=== PATIENT | male | born 1970 | race Caucasian/White ===

== ENCOUNTER 2016-11-07 16:27 | Emergency (ER) | payer OTHER | END 2016-11-07 18:44 | disposition home or self-care (01) | DX: S50.02XA Contusion of left elbow, initial encounter (principal); W22.09XA Striking against other stationary object, initial encounter; Y93.89 Activity, other specified; Z87.891 Personal history of nicotine dependence ==

== ENCOUNTER 2018-01-30 11:42 | Emergency (ER) | payer OTHER ==
--- NOTE | 2018-01-30 13:04 | ED Physician Documentation ---
PD HPI BACK PAIN - Stated complaint Stated Complaint: BACK PX - Chief complaint Chief Complaint: Back Pain - History obtained from History obtained from: Patient - History of Present Illness Timing - onset: How many days ago (4) Timing - duration: Days (4) Timing - details: Abrupt onset (awoke with back pain and stiffness, and has had persistent pain and spasms.), Still present Location: Lower, Right Quality: Pain (radiates down right back of thigh but not down whole leg.), Spasm Associated symptoms: No: Fever, Weakness, Numbness, Incontinent of urine Improves with: Rest. No: Meds Worsened by: Movement, Twisting Contributing factors: No: Lifting, Twisting, Trauma Similar symptoms before: Has not had sx before Recently seen: Not recently seen Review of Systems Constitutional: denies: Fever, Myalgias Nose: denies: Rhinorrhea / runny nose, Congestion Throat: denies: Sore throat Cardiac: denies: Chest pain / pressure, Palpitations Respiratory: denies: Dyspnea, Cough GI: denies: Abdominal Pain, Vomiting, Diarrhea : denies: Dysuria, Incontinent, Hematuria Skin: denies: Rash, Lesions Neurologic: denies: Focal weakness, Numbness PD PAST MEDICAL HISTORY - Past Medical History Past Medical History: Yes Cardiovascular: High cholesterol Respiratory: Sleep apnea Endocrine/Autoimmune: Type 2 diabetes Psych: Depression - Past Surgical History Past Surgical History: Yes General: Colonoscopy - Present Medications Home Medications: Ambulatory Orders Medication Instructions Recorded Confirmed Sertraline HCl [Zoloft] 100 mg PO DAILY 11/07/16 11/07/16 Dexamethasone [Decadron] 4 mg PO DAILY #5 tablet 01/30/18 HYDROcod/ACETAM 5/325 [[place] 5/325] 1 tab PO Q6H PRN #15 tablet 01/30/18 Methocarbamol [Robaxin] 500 mg PO Q6H PRN #25 tablet 01/30/18 Naproxen [Naprosyn] 500 mg PO BID #20 tablet 01/30/18 - Allergies Allergies/Adverse Reactions: Allergies Allergy/AdvReac Type Severity Reaction Status Date / Time No Known Drug Allergies Allergy Verified 02/16/15 23:07 - Social History Does the pt smoke?: Yes Smoking Status: Current every day smoker Does the pt drink ETOH?: Yes Does the pt have substance abuse?: Yes - Immunizations Immunizations are current?: Yes - POLST Patient has POLST: No PD ED PE NORMAL - Vitals Vital signs reviewed: Yes - General General: Alert and oriented X 3, Well developed/nourished, Other (appears in pain and guarding motion of low back. ) - Cardiac Cardiac: RRR, No murmur - Respiratory Respiratory: Clear bilaterally - Abdomen Abdomen: Soft, Non tender, Non distended - Male Male : Deferred - Rectal Rectal: Deferred - Back Back: No CVA TTP, No spinal TTP (tender right lateral lumbar/SI area without rash nor sores. ) - Derm Derm: Normal color, Warm and dry, No rash - Extremities Extremities: No deformity, No tenderness to palpate, Normal ROM s pain - Neuro Neuro: Alert and oriented X 3, No motor deficit, No sensory deficit, Normal speech, Other (normal reflexes at knees. ) Results - Vitals Vitals: Oxygen O2 Source Room air PD MEDICAL DECISION MAKING - ED course Complexity details: re-evaluated patient, considered differential (seems muscular and spasms without red flags. ), d/w patient - Sepsis Event Vital Signs: Oxygen O2 Source Room air Departure - Departure Disposition: Home, Self Care Clinical Impression: Back muscle spasm Lower back pain Qualifiers: Chronicity: acute Back pain laterality: right Sciatica presence: with sciatica Sciatica laterality: sciatica of right side Qualified Code(s): M54.41 - Lumbago with sciatica, right side Condition: Stable Record reviewed to determine appropriate education?: Yes Instructions: ED Spasm Back No Trauma Follow-Up: XAVI BUI [Primary Care Provider] - Prescriptions: Dexamethasone [Decadron] 4 mg PO DAILY #5 tablet HYDROcod/ACETAM 5/325 [[place] 5/325] 1 tab PO Q6H PRN #15 tablet PRN Reason: Pain Methocarbamol [Robaxin] 500 mg PO Q6H PRN #25 tablet PRN Reason: Spasms Naproxen [Naprosyn] 500 mg PO BID #20 tablet Comments: Gentle range of motion and heat for the area to reduce spasming. Physical treatments such as physical therapy, massage and chiropractic are good. Using anti-inflammatories such as naproxen or ibuprofen 2-3 times daily. Decadron is also an anti-inflammatory and use it daily for 5 more days. Robaxin muscle relaxant for spasms. Add Tylenol or hydrocodone if needed for pains. Recheck if not improved over the next few days to week. Return if other symptoms develop. Forms: Activity restrictions Discharge Date/Time: 01/30/18 14:29
[2018-01-30] MEDS ORDERED: IBUPROFEN 600 MG TABLET PO STA (13:17)
[2018-01-30] MEDS ORDERED: MORPHINE 10 MG/ML VIAL IM STA (13:17)
[2018-01-30] MEDS ORDERED: diazePAM 5 MG TABLET PO STA (13:17)
[2018-01-30] MEDS ORDERED: TRIAMCINOLONE 40 MG/ML VIAL IM STA (13:17)
[2018-01-30 14:22] VITALS: BP 132/77
== END 2018-01-30 14:29 | disposition home or self-care (01) ==
LOC: ED 11:42
DX: M62.830 Muscle spasm of back (principal); M54.41 Lumbago with sciatica, right side; E11.9 Type 2 diabetes mellitus without complications; E78.00 Pure hypercholesterolemia, unspecified; F17.200 Nicotine dependence, unspecified, uncomplicated
CPT/HCPCS: 96372; 99283; A9270

== ENCOUNTER 2021-03-30 07:00 | Outpatient (CLI) | payer OTHER ==
--- NOTE | 2021-03-30 16:13 | XRAY Report ---
PROCEDURE: Chest 2 View X-Ray INDICATIONS: WHEEZING TECHNIQUE: 2 view(s) of the chest. COMPARISON: 10/04/2014 chest x-ray. FINDINGS: Surgical changes and devices: None. Lungs and pleura: No pleural effusions or pneumothorax. Mild reticulonodular pulmonary opacity. Mediastinum: Mediastinal contours are normal. Heart size is normal. Bones and chest wall: No suspicious bony abnormalities. Soft tissues appear unremarkable. IMPRESSION: Mild atypical pneumonia. Reviewed by: Jennifer Reyes MD on 03/30/2021 4:12 PM PDT Approved by: Jennifer Reyes MD on 03/30/2021 4:12 PM PDT Station ID: [id number]
[2021-03-30 17:59] LABS: BASOPHILS # (AUTO) 0.1 10^3/uL (0.0-0.1); BASOPHILS % (AUTO) 0.7 %; EOSINOPHILS # (AUTO) 0.2 10^3/uL (0.0-0.7); EOSINOPHILS % (AUTO) 1.5 %; HGB - HEMOGLOBIN 16.4 g/dL (14.0-18.0); LYMPHOCYTES # (AUTO) 2.9 10^3/uL (1.5-3.5); LYMPHOCYTES % (AUTO) 19.7 %; MEAN CORPUSCULAR HEMOGLOBIN 31.4 pg (27.0-31.0); MEAN CORPUSCULAR HGB CONC 34.2 g/dL (32.0-36.0); MEAN CORPUSCULAR VOLUME 91.8 fL (80.0-94.0); MEAN PLATELET VOLUME 10.9 fL (7.4-11.4); MONOCYTES # (AUTO) 1.5 10^3/uL (0.0-1.0); MONOCYTES % (AUTO) 9.9 %; NEUTROPHILS # (AUTO) 10.2 10^3/uL (1.5-6.6); NEUTROPHILS % (AUTO) 67.9 %; PLT - PLATELET COUNT 276 10^3/uL (130-450); RED BLOOD COUNT 5.23 10^6/uL (4.70-6.10); RED CELL DISTRIBUTION WIDTH 12.4 % (12.0-15.0)
[2021-03-30 18:39] LABS: ALBUMIN/GLOBULIN RATIO 0.9 (1.0-2.2); BILIRUBIN,TOTAL 0.6 mg/dL (0.2-1.0); CALCIUM 9.4 mg/dL (8.5-10.3); CREATININE 0.7 mg/dL (0.6-1.2); POTASSIUM 3.7 mmol/L (3.5-5.0); TOTAL PROTEIN 8.3 g/dL (6.7-8.2)
== END 2021-03-30 23:59 | disposition home or self-care (01) ==
LOC: DI.N 07:00
PROVIDERS: ATTEND Nurse Practitioner
DX: J18.9 Pneumonia, unspecified organism (principal); Z20.822 Contact with and (suspected) exposure to COVID-19
CPT/HCPCS: 36415; 80053; 85025

== ENCOUNTER 2021-03-31 07:51 | Emergency (ER) | payer OTHER ==
--- NOTE | 2021-03-31 08:15 | ED Physician Documentation ---
PD HPI URI - Stated complaint Stated Complaint: C+/COUGHING BLOOD - Chief complaint Chief Complaint: Resp - History obtained from History obtained from: Patient - History of Present Illness Timing - onset: How many days ago (2-3) Timing duration: Days (2-3) Timing details: Abrupt onset, Still present Associated symptoms: Fever, Chills, Dry cough, Dyspnea Contributing factors: Sick contact (works on [employer] and had exposure to sick persons), Unimmunized (he has not had COVID vaccine.). No: Travel, Immunocompromised Improves by: No: Medication (tried OTC cough medication.) Similar symptoms before: Has not had sx before Recently seen: Clinic (went to walk in clinic yesterday and had CXR, labs, and COVID test. Results of COVID still pending.) Review of Systems Constitutional: reports: Fever, Myalgias Nose: reports: Rhinorrhea / runny nose, Congestion Throat: reports: Sore throat Cardiac: denies: Chest pain / pressure, Palpitations Respiratory: reports: Dyspnea, Cough. denies: Wheezing GI: reports: Nausea, Diarrhea. denies: Abdominal Pain, Vomiting Skin: denies: Rash, Lesions Musculoskeletal: denies: Neck pain Neurologic: reports: Generalized weakness. 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 ) Endocrine/Autoimmune: Type 2 diabetes Psych: Depression - Past Surgical History Past Surgical History: Yes General: Colonoscopy - Present Medications Home Medications: Ambulatory Orders Medication Instructions Recorded Confirmed Sertraline HCl [Zoloft] 100 mg PO DAILY 11/07/16 11/07/16 HYDROcod/ACETAM 5/325 [[place] 5/325] 1 tab PO Q6H PRN #15 tablet 01/30/18 Naproxen [Naprosyn] 500 mg PO BID #20 tablet 01/30/18 dexAMETHasone [Decadron] 4 mg PO DAILY #5 tablet 01/30/18 methocarbamoL [Robaxin] 500 mg PO Q6H PRN #25 tablet 01/30/18 Benzonatate [Tessalon] 100 mg PO TID PRN #20 cap 03/31/21 dexAMETHasone [Decadron] 4 mg PO DAILY #5 tablet 03/31/21 diphenhydrAMINE ELIXIR [Benadryl 25 mg PO Q6H PRN #240 ml 03/31/21 Elixir] - Allergies Allergies/Adverse Reactions: Allergies Allergy/AdvReac Type Severity Reaction Status Date / Time No Known Drug Allergies Allergy Verified 03/31/21 08:04 - Social History Does the pt smoke?: Yes Smoking Status: Current every day smoker Does the pt drink ETOH?: Yes Does the pt have substance abuse?: Yes - Immunizations Immunizations are current?: Yes - POLST Patient has POLST: No PD ED PE NORMAL - Vitals Vital signs reviewed: Yes - General General: Alert and oriented X 3, Well developed/nourished, Other (coughing repetitively and has some tachypnea. ) - HEENT HEENT: Pharynx benign - Neck Neck: Supple, no meningeal sign, No adenopathy - Cardiac Cardiac: RRR, No murmur - Respiratory Respiratory: No: Clear bilaterally (no coarse sounds but does have scattered wheezing and prolonged exp phase. ) - Abdomen Abdomen: Soft, Non tender Results - Vitals Vitals: Vital Signs - 24 hr 03/31/21 03/31/21 09:09 10:18 Temperature 36.5 C Heart Rate 71 76 Respiratory 18 16 Rate Blood Pressure 118/45 L O2 Saturation 98 Oxygen O2 Source Room air - EKG (time done) 08:24 Rate: Rate (enter#) (65) Rhythm: NSR [place]: Normal Intervals: Normal [place] QRS: Normal Ischemia: Normal ST segments. No: ST elevation c/w ischemia, ST depression PD MEDICAL DECISION MAKING - ED course Complexity details: re-evaluated patient (improved with MDI and med for cough. Symptoms sound likely COVID. Test pending. If positive, he is interested in the MAB therapy, so would return to ER during daytime when pharmacy will be here. ), considered differential (most likely covid. ), d/w patient Departure - Departure Disposition: 01 Home, Self Care Clinical Impression: Respiratory infection, Cough, Wheezing Condition: Stable Record reviewed to determine appropriate education?: Yes Instructions: ED URI Viral W Wheezing Prescriptions: diphenhydrAMINE ELIXIR [Benadryl Elixir] 25 mg PO Q6H PRN #240 ml PRN Reason: Cough dexAMETHasone [Decadron] 4 mg PO DAILY #5 tablet Benzonatate [Tessalon] 100 mg PO TID PRN #20 cap PRN Reason: Cough Comments: Use the albuterol inhaler 3 to 5 puffs 4 times a day regularly for the next several days to week. Decadron steroid daily for the next 5 more days. Add Tessalon if needed for cough and Benadryl liquid if needed for sore throat and cough and congestion. Stay well-hydrated. Tylenol if needed for fevers or pains. Your Covid test has not resulted yet from yesterday. This may be Covid or may fit for another virus called RSV. I presume your Covid result will come back later today or tomorrow. Return if not improving a bit over the next couple of days and return if worsening in particular. If your Covid test comes back positive, you could qualify for the monoclonal antibody infusion. This would need to be done during the day when the pharmacist is here. Return to the ER during the day if your Covid test is positive and you would like to receive that medication. Discharge Date/Time: 03/31/21 10:21
[2021-03-31] MEDS: DEXAMETHASONE 10 MG/ML VIAL IVP STA (09:01)
[2021-03-31] MEDS: diphenhydrAMINE ELIXIR 25 MG/10 ML UDC PO STA (09:01)
[2021-03-31] MEDS: BENZONATATE 100 MG CAPSULE PO STA (09:02)
[2021-03-31] MEDS: ALBUTEROL 1 PUFF INH STA (09:06)
[2021-03-31] MEDS: IPRATROPIUM/ALBUTEROL 3 ML NEB INH STA (09:24)
[2021-03-31 10:19] VITALS: BP 118/45
== END 2021-03-31 10:21 | disposition home or self-care (01) ==
LOC: ED 07:51
DX: J98.8 Other specified respiratory disorders (principal); R06.2 Wheezing; E11.9 Type 2 diabetes mellitus without complications; F17.200 Nicotine dependence, unspecified, uncomplicated
CPT/HCPCS: 93005; 94640; 94664; 99283; 99284; A9270